=== PATIENT | male | born 1965 | race Caucasian/White ===

== ENCOUNTER → 2016-04-08 | Outpatient (CLI) | payer OTHER ==
[~2016-04-08] MED LIST: ARIP20TA4 PO; ASPI81TA21 PO; BUSP1TAB PO; CETI10TA10 PO; EFFSR150 PO; EFFSR75 PO; FISHOIL PO; LAMO100T PO; LISI2.5T5 PO; OMEP40CA36 PO; TRAZ1TAB52 PO; ZCRT/40 PO
--- NOTE | 2016-04-08 09:29 | DIAGNOSTIC IMAGING REPORT ---
ABDOMEN CT EXAMINATION PRE AND POST INTRAVENOUS CONTRAST CT DOSE: 3143.23 mGy.cm HISTORY: Renal cyst N28.1 Kidney cyst, [id number] [id number] BPH (benign prosta TECHNIQUE: Multiaxial CT images of the abdomen was performed pre and post intravenous contrast enhancement. COMPARISON STUDY: CT 12/30/2015 [facility]. Ultrasound dated 02/15/2016 FINDINGS: The kidneys enhance uniformly. The lobular contour of the mid pole left kidney appears to relate to an anatomic variation. No evidence for cyst or mass based on this series of images. Pancreas is improved in appearance compared to the prior CT study at [facility]. Infiltrative change involving the pancreatic head and body enhancing process appears to be diminished. There is persistent 2.1 cm complex nodule pancreatic tail. Neoplasm again must be excluded. There are several small retroperitoneal nodes unchanged from prior studies. There is no evidence for progressive chaparrita change. Bowel pattern overall is nonobstructive. There has been a prior cholecystectomy. IMPRESSION: 1. Negative study of the kidneys. 2. Ultrasonic findings appear to relate to anatomic variation. 3. 2.1 cm lesion in the pancreatic tail. Although unchanged from the prior outside CT study, a neoplastic process is not excluded based on this exam. Further evaluation is recommended Electronically signed by: Michael Tadeo M.D. 04/08/2016 9:28 AM Dictated Date/Time: 04/08/2016 9:16 AM
== END | disposition home or self-care (01) ==
LOC: C.CTS 08:47
PROVIDERS: ATTEND Internal Medicine Nephrology
DX: N28.1 Cyst of kidney, acquired (principal); R30.0 Dysuria; N40.0 Benign prostatic hyperplasia without lower urinary tract symptoms

== ENCOUNTER → 2016-07-28 | Outpatient (CLI) | payer OTHER | END | disposition home or self-care (01) | LOC: C.LABSPEC 16:45 | PROVIDERS: ATTEND Nurse Practitioner Family | DX: N41.9 Inflammatory disease of prostate, unspecified (principal) ==

== ENCOUNTER → 2016-08-11 | Outpatient (CLI) | payer OTHER ==
[2016-08-11 17:24] LABS: HEMATOCRIT 46.2 % (42-52); MEAN CELL VOLUME 84.5 fL (80-100); MEAN CORPUSCULAR HEMOGLOBIN 27.8 pg (25-34); MEAN CORPUSCULAR HGB CONC 32.9 g/dl (32-36); MEAN PLATELET VOLUME 9.8 fL (7.4-10.4); PLATELET COUNT 321 K/uL (130-400); RED BLOOD COUNT 5.47 M/uL (4.7-6.1); WHITE BLOOD COUNT 8.26 K/uL (4.8-10.8)
[2016-08-11 17:34] LABS: URINE APPEARANCE CLEAR (CLEAR); URINE BILIRUBIN NEG (NEG); URINE COLOR YELLOW; URINE NITRITE NEG (NEG); URINE SPECIFIC GRAVITY 1.023 (1.000-1.030); UROBILINOGEN NEG (NEG)
[2016-08-11 17:36] LABS: ALT/SGPT 29 U/L (12-78); AST/SGOT 14 U/L (15-37); BLOOD UREA NITROGEN 24 mg/dl (7-18); BUN/CREATININE RATIO 15.7 (10-20); CALCIUM 9.2 mg/dl (8.5-10.1); CARBON DIOXIDE 27 mmol/L (21-32); CHLORIDE 100 mmol/L (98-107); GLUCOSE 113 mg/dl (70-99); POTASSIUM 4.2 mmol/L (3.5-5.1); SODIUM 136 mmol/L (136-145)
[2016-08-11 17:38] LABS: MANUAL MICROSCOPIC REQUIRED? NO; REVIEW REQ? NO
[2016-08-11 17:39] LABS: ALB/GLOB RATIO 1.2 (0.9-2); ALKALINE PHOSPHATASE 91 U/L (45-117)
[2016-08-11 17:49] LABS: URINE PROTIEN/CREAT RATIO 0.1 (0-0.2); URINE TOTAL PROTEIN 15.8 mg/dl (0-11.9)
--- NOTE | 2016-08-15 10:19 | CODING QUERY MEDICAL NECESSITY ---
SUPPORTING DIAGNOSIS NEEDED Dr. Conroy, A supporting diagnosis is required for the test/procedure performed on this patient in order for us to be reimbursed by the patient's insurance. Please provide a supporting diagnosis for the following test/procedure listed below next to the test name along with your signature. *If there is no additional diagnosis for this patient that would support the following test/procedure please document that below next to the test/procedure. Test(s)/Procedure(s) that require a supporting diagnosis: * ([id number]) VITAMIN D ASSAY DIAGNOSIS: DATE OF SERVICE: 08/11/16 Provider Signature: Date: Thank you Luis Manuel Hensley [facility] Information Management Once completed, please kindly fax back to [phone] For questions please call [phone]
== END | disposition home or self-care (01) ==
LOC: C.LABPBG 14:42
PROVIDERS: ATTEND Nurse Practitioner Family
DX: N28.1 Cyst of kidney, acquired (principal); R30.0 Dysuria; N40.0 Benign prostatic hyperplasia without lower urinary tract symptoms; N41.9 Inflammatory disease of prostate, unspecified; E55.9 Vitamin D deficiency, unspecified